=== PATIENT | female | born 1985 | race Caucasian/White ===

== ENCOUNTER 2018-11-08 01:03 | Emergency (ER) | payer BC ==
--- NOTE | 2018-11-08 01:34 | EDM.PDOC ---
ED HPI GENERAL MEDICAL PROBLEM - General Chief Complaint: Chest Pain Stated Complaint: CHEST PAIN Time Seen by Provider: 11/08/18 01:33 - History of Present Illness INITIAL COMMENTS - FREE TEXT/NARRATIVE: 32-year-old female presents emergency room with chest pain. This pain has been going on for couple of days. Patient denies any trauma. However states that she recently got over a upper respiratory tract infection. The pain is fairly constant at the base of her chest bilateral not worsened much with deep inspiration. She also thinks there is a lump on the right side of her upper abdomen at the ribs that might swell up. And she wants to make sure xiphoid process is normal. Patient denies any fevers or chills. The pain did keep her up last night. Middle Chest Pain Score (Numeric/FACES): 2 - Related Data Allergies Allergy/AdvReac Type Severity Reaction Status Date / Time No Known Allergies Allergy Verified 11/08/18 01:11 Home Meds: Home Meds Naproxen 500 mg PO Q12H #20 tablet 11/08/18 [Rx] Past Medical History Gastrointestinal History: Reports: Hemorrhoids - Past Surgical History Female Surgical History: Reports: Section Social & Family History - Tobacco Use Smoking Status *Q: Never Smoker - Caffeine Use Caffeine Use: Reports: None ED ROS GENERAL - Review of Systems Review Of Systems: See Below Constitutional: Reports: No Symptoms HEENT: Reports: No Symptoms Respiratory: Reports: No Symptoms Cardiovascular: Reports: No Symptoms GI/Abdominal: Reports: No Symptoms : Reports: No Symptoms Musculoskeletal: Reports: No Symptoms Neurological: Reports: No Symptoms ED EXAM, GENERAL - Physical Exam Exam: See Below Exam Limited By: No Limitations General Appearance: Alert, No Apparent Distress Head: Atraumatic, Normocephalic Neck: Normal Inspection, Supple, Non-Tender, Full Range of Motion. No: Lymphadenopathy (L), Lymphadenopathy (R) Respiratory/Chest: No Respiratory Distress, Lungs Clear, Other (Pressure over the sternum causes a little bit of discomfort that mimics the pain she's been having and pressure over the lateral ribs also causes some pain that mimics what she's been having) Cardiovascular: Regular Rate, Rhythm, No Edema, No Murmur GI/Abdominal: Normal Bowel Sounds, Soft, Non-Tender, Other (Xiphoid palpates normal as do the cartilaginous portions of the ribs that are easily palpable) Back Exam: Normal Inspection. No: CVA Tenderness (L), CVA Tenderness (R) Extremities: Normal Inspection, Non-Tender EKG INTERPRETATION EKG Date: 11/08/18 Rhythm: Other (Normal sinus with some sinus irregularity) [place]: Normal P-Wave: Present QRS: Normal ST-T: Normal QT: Normal Comparison: NA - No Prior EKG EKG Interpretation Comments: Borderline short [place], borderline early transition sinus irregularity otherwise normal EKG Course - Vital Signs Last Recorded V/S: Last Vital Signs Temp 36.3 C 11/08/18 01:08 Pulse 81 11/08/18 01:08 Resp 20 11/08/18 01:08 BP 102/70 11/08/18 01:08 Pulse Ox 97 11/08/18 01:08 - Orders/Labs/Meds Orders: Active Orders 24 hr Category Date Time Status EKG Documentation Completion [RC] STAT Care 11/08/18 01:45 Ordered Chest 2V [CR] Stat Exams 11/08/18 01:45 Ordered - Re-Assessments/Exams Free Text/Narrative Re-Assessment/Exam: 11/08/18 02:16 Chest x-ray negative for acute cardiopulmonary changes no obvious skeletal abnormality noted. Offered a shot of Toradol but this is declined. Departure - Departure Time of Disposition: 02:16 Disposition: Home, Self-Care 01 Clinical Impression: Chest wall pain Prescriptions: Naproxen 500 mg PO Q12H #20 tablet Referrals: PCP,None [Primary Care Provider] - Forms: ED Department Discharge Additional Instructions: Return to the emergency room with any questions problems or worsening symptoms. Use the Naprosyn twice daily. Whenever taking the Naprosyn or ibuprofen always take with meals. Follow-up in the Hospital clinic early next week if not significantly better. [phone] - My Orders Last 24 Hours: My Active Orders 11/08/18 01:45 EKG Documentation Completion [RC] STAT Chest 2V [CR] Stat - Assessment/Plan Last 24 Hours: My Active Orders 11/08/18 01:45 EKG Documentation Completion [RC] STAT Chest 2V [CR] Stat
--- NOTE | 2018-11-12 05:18 | CR ---
Chest: Two views of the chest were obtained. Comparison: No previous chest x-ray. Heart size and mediastinum are normal. Lungs are clear with no acute parenchymal change. Bony structures are unremarkable. Pressure: 1. Nothing acute is seen on two-view chest x-ray. Diagnostic code #1
== END 2018-11-08 02:23 | disposition home or self-care (01) ==
LOC: JD.ED 01:03
DX: R07.89 Other chest pain (principal)
CPT/HCPCS: 71046; 93005; 93010; 99284; 99285-25

== ENCOUNTER 2020-01-01 18:55 | Inpatient (IN) | payer BC ==
[2020-01-01] MEDS ORDERED: Nalbuphine 10 MG/ML Syringe IVPUSH PRN (19:18)
[2020-01-01] MEDS ORDERED: Sodium Chloride 0.9% 10 ML Syringe FLUSH PRN (19:18)
[2020-01-01] MEDS ORDERED: Ondansetron 4 MG/2 ML SDV IVPUSH PRN (19:18)
--- NOTE | 2020-01-01 19:21 | PCM.LDHP ---
L&D History of Present Illness - General Date of Service: 01/01/20 Admit Problem/Dx: Patient Status Order with Admit Dx/Problem 01/01/20 19:18 Patient Status [ADT] Routine Admission Diagnosis/Problem Admission Diagnosis/Problem Gestational diabetes mellitus Source of Information: Patient History Limitations: Reports: No Limitations - History of Present Illness Introduction:: Patient is a 34 y/o at 40 5/7 wks who presents for IOL/TOLAC for GODMA1. Doing well today. 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 LMP (Approximate): Endocrine/Metabolic History: Reports: Diabetes, Gestational - Past Surgical History Female Surgical History: Reports: Section Social & Family History - Tobacco Use Tobacco Use Status *Q: Never Tobacco User - Caffeine Use Caffeine Use: Reports: None - Alcohol Use Alcohol Use History: No - Recreational Drug Use Recreational Drug Use: No H&P Review of Systems - Review of Systems: Review Of Systems: See Below General: Reports: No Symptoms Pulmonary: Reports: No Symptoms Cardiovascular: Reports: No Symptoms Gastrointestinal: Reports: No Symptoms Genitourinary: Reports: No Symptoms Musculoskeletal: Reports: Hand Pain Psychiatric: Reports: No Symptoms Neurological: Reports: No Symptoms L&D Exam - Exam Exam: See Below - OB Specific Movement: Active Heart Tones: Present Heart Tones per Min: 130 Heart Rate (FHR) Variability: Moderate (6-25 bmp) Presentation: Vertex - Exam General: Alert, Oriented, Cooperative Lungs: Clear to Auscultation, Normal Respiratory Effort Cardiovascular: Regular Rate, Regular Rhythm GI/Abdominal Exam: Soft, Non-Tender Genitourinary: Normal external exam Extremities: Normal Inspection Skin: Warm, Dry, Intact - Problem List (1) 40 weeks gestation of SNOMED Code(s): 35761832 ICD Code: Z3A.40 - 40 WEEKS GESTATION OF Status: Acute Current Visit: Yes (2) Gestational diabetes SNOMED Code(s): 28957073 ICD Code: O24.419 - GESTATIONAL DIABETES MELLITUS IN , UNSP CONTROL Status: Acute Current Visit: Yes Qualifiers: Gestational diabetes mellitus control: diet-controlled Trimester: third trimester Qualified Code(s): O24.410 - Gestational diabetes mellitus in , diet controlled (3) History of delivery SNOMED Code(s): 364084306 ICD Code: Z98.891 - HISTORY OF UTERINE SCAR FROM PREVIOUS SURGERY Status: Acute Current Visit: Yes Problem List Initiated/Reviewed/Updated: Yes Orders Last 24hrs: Active Orders 24 hr Category Date Time Status Patient Status [ADT] Routine ADT 01/01/20 19:18 Ordered Blood Glucose Check, Bedside [RC] Q4HR Care 01/01/20 19:18 Ordered Communication Order [RC] ASDIRECTED Care 01/01/20 19:18 Ordered Communication Order [RC] ASDIRECTED Care 01/01/20 19:18 Ordered Communication Order [RC] ASDIRECTED Care 01/01/20 19:18 Ordered Heart Tones [RC] ASDIRECTED Care 01/01/20 19:19 Ordered Non Stress Test [RC] PER UNIT ROUTINE Care 01/01/20 19:18 Ordered Notify Provider [RC] ASDIRECTED Care 01/01/20 19:18 Ordered Notify Provider [RC] PRN Care 01/01/20 19:18 Ordered Peripheral IV Care [RC] . DIRECTED Care 01/01/20 19:19 Ordered Up ad Mari [RC] ASDIRECTED Care 01/01/20 19:19 Ordered Vaginal Exam [RC] ASDIRECTED Care 01/01/20 19:18 Ordered Vital Signs [RC] ASDIRECTED Care 01/01/20 19:18 Ordered Regular Diet [DIET] Diet 01/01/20 Dinner Ordered CBC W/O DIFF,HEMOGRAM [HEME] Routine Lab 01/01/20 19:18 Ordered CORONAVIRUS COVID-19 [place] [facility] [MOLEC] Stat Lab 01/01/20 19:20 Ordered RAPID PLASMA REAGIN,RPR [CHEM] Routine Lab 01/01/20 19:18 Ordered TYPE AND SCREEN [BBK] Routine Lab 01/01/20 19:18 Ordered Lactated Ringers [Ringers, Lactated] 1,000 ml Med 01/01/20 19:30 Ordered IV ASDIRECTED Nalbuphine [Nubain] Med 01/01/20 19:18 Ordered 10 mg IVPUSH Q2H PRN Ondansetron [Zofran] Med 01/01/20 19:18 Ordered 4 mg IVPUSH Q4H PRN Oxytocin/Lactated Ringers [Pitocin in LR 10 Units/1,000 Med 01/01/20 19:30 Ord ered ML] 10 unit in 1,000 ml IV .CONTINUOUS Oxytocin/Lactated Ringers [Pitocin in LR 10 Units/1,000 Med 01/01/20 19:30 Ordered ML] 10 unit in 1,000 ml IV TITRATE Sodium Chloride 0.9% [Saline Flush] Med 01/01/20 19:18 Ordered 10 ml FLUSH ASDIRECTED PRN Electronic Heart Tones Ext w TOCO [WOMSER] Oth 01/01/20 19:18 Ordered Routine Electronic Heart Tones Internal [WOMSER] Per Unit Oth 01/01/20 19:18 Ordered Routine Peripheral IV Insertion Adult [OM.PC] Routine Oth 01/01/20 19:18 Ordered Resuscitation Status Routine Resus Stat 01/01/20 19:18 Ordered Assessment/Plan Comment:: * Labs ordered * Glucose every 4 hours * Pitocin for IOL. Garcia bulb / AROM as needed * Pain management per patient preference * Anticipate
[2020-01-01] MEDS ORDERED: Oxytocin/Lactated Ringers 10 UNIT/1,000 ML BAG IV SCH (19:30)
[2020-01-01] MEDS: Oxytocin/Lactated Ringers 10 UNIT/1,000 ML BAG IV SCH (20:42)
[2020-01-01] MEDS: Lactated Ringers 1,000 ML IV SCH (20:42)
[2020-01-01] MEDS: Calcium Carbonate 500 MG Tab.Chew PO PRN (20:55)
[2020-01-02] MEDS ORDERED: fentaNYL 100 MCG/2 ML SDV EPIDUR PRN (03:26)
[2020-01-02] MEDS ORDERED: ePHEDrine 50 MG/ML SDV IVPUSH PRN (03:26)
[2020-01-02] MEDS ORDERED: diphenhydrAMINE 50 MG/ML SDV IVPUSH PRN ×2 (03:26→18:06)
[2020-01-02] MEDS: Bupivacaine/fentaNYL/NS 100 ML Bag EPIDUR PRN ×2 (03:44→12:43)
[2020-01-02] MEDS: Lactated Ringers 1,000 ML IV SCH ×3 (04:02→11:18)
--- NOTE | 2020-01-02 04:08 | PCM.PREANE ---
Preanesthetic Assessment - Procedure Proposed Procedure: Labor Epidural - Anesthesia/Transfusion/Family Hx Anesthesia History: Prior Anesthesia Without Reaction Family History of Anesthesia Reaction: No Transfusion History: No Prior Transfusion(s) - Review of Systems General: No Symptoms Pulmonary: No Symptoms Cardiovascular: No Symptoms Gastrointestinal: Other (GERD) Neurological: No Symptoms Other: Reports: Diabetes (Gestational ) - Physical Assessment Vital Signs: Last Vital Signs Temp 37.4 C 01/01/20 19:18 Pulse 112 H 01/01/20 19:18 Resp 18 01/01/20 19:18 BP 117/78 01/01/20 19:18 Pulse Ox 99 01/01/20 19:18 Height: 1.55 m Weight: 70.398 kg ASA Class: 2 Mental Status: Alert & Oriented x3 Airway Class: Mallampati = 2 Dentition: Reports: Normal Dentition Thyro-Mental Finger Breadths: 3 Mouth Opening Finger Breadths: 3 ROM/Head Extension: Full Lungs: Clear to Auscultation, Normal Respiratory Effort Cardiovascular: Regular Rate, Regular Rhythm - Lab Values: Laboratory Last Values WBC 5.22 K/mm3 (3.98-10.04) 01/01/20 19:33 RBC 4.32 M/mm3 (3.98-5.22) 01/01/20 19:33 Hgb 11.0 gm/dl (11.2-15.7) L 01/01/20 19:33 Hct 35.4 % (34.1-44.9) 01/01/20 19:33 MCV 81.9 fl (79.4-94.8) 01/01/20 19:33 MCH 25.5 pg (25.6-32.2) L 01/01/20 19:33 MCHC 31.1 g/dl (32.2-35.5) L 01/01/20 19:33 RDW Std Deviation 56.4 fL (36.4-46.3) H 01/01/20 19:33 Plt Count 112 K/mm3 (182-369) L 01/01/20 19:33 MPV TNP 01/01/20 19:33 POC Glucose 84 mg/dL (70-105) 01/02/20 04:28 RPR Non-reactive (NONREACTIVE) 01/01/20 19:33 SARS-CoV-2 RNA ([facility] [place] [facility]) Negative (NEGATIVE) 01/01/20 19:30 Blood Type O NEGATIVE 01/01/20 19:33 Gel Antibody Screen Negative 01/01/20 19:33 - Allergies Allergies/Adverse Reactions: Allergies Allergy/AdvReac Type Severity Reaction Status Date / Time No Known Allergies Allergy Verified 01/01/20 20:24 - Acknowledgements Anesthesia Type Planned: Epidural Pt an Appropriate Candidate for the Planned Anesthesia: Yes Alternatives and Risks of Anesthesia Discussed w Pt/Guardian: Yes Pt/Guardian Understands and Agrees with Anesthesia Plan: Yes PreAnesthesia Questionnaire Gastrointestinal History: Reports: GERD, Hemorrhoids 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: Psychiatric History: Reports: Anxiety Endocrine/Metabolic History: Reports: Diabetes, Gestational Hematologic History: Reports: Anemia - Past Surgical History Female Surgical History: Reports: Section - SUBSTANCE USE Tobacco Use Status *Q: Never Tobacco User Recreational Drug Use History: No - HOME MEDS Home Medications: Home Meds Docusate Sodium [Colace] 1 cap PO Q12HR PRN 01/01/20 [History] No122/Iron/Folic Acid [ Multi Tablet] 1 each PO DAILY 01/01/20 [History] - CURRENT (IN HOUSE) MEDS Current Meds: Current Medications Calcium Carbonate/Glycine (Tums) 1,000 mg PO Q2HR PRN PRN Reason: Indigestion Last Admin: 01/01/20 20:55 Dose: 1,000 mg Documented by: Diphenhydramine HCl (Benadryl) 25 mg IVPUSH Q6H PRN PRN Reason: pruritis Ephedrine Sulfate (Ephedrine Sulfate) 5 mg IVPUSH ASDIRECTED PRN PRN Reason: Hypotension Fentanyl (Sublimaze) 100 mcg EPIDUR Q3H PRN PRN Reason: Pain Last Admin: 01/02/20 03:44 Dose: 100 mcg Documented by: Fentanyl/Bupivacaine HCl (Fentanyl/Bupivacaine/Ns 2 Mcg-0.125% 100 Ml) 100 ml EPIDUR ASDIRECTED PRN PRN Reason: Pain Last Admin: 01/02/20 03:44 Dose: 100 ml Documented by: Oxytocin/Lactated Ringer's (Pitocin In Lr 10 Units/1,000 Ml) 10 unit in 1,000 mls @ 12 mls/hr IV TITRATE TOMMIE; Protocol Last Titration: 01/02/20 03:53 Dose: 5 munits/min, 30 mls/hr Documented by: Oxytocin/Lactated Ringer's (Pitocin In Lr 10 Units/1,000 Ml) 10 unit in 1,000 mls @ 500 mls/hr IV .CONTINUOUS TOMMIE Lactated Ringer's (Ringers, Lactated) 1,000 mls @ 40 mls/hr IV ASDIRECTED TOMMIE Last Admin: 01/02/20 04:02 Dose: 40 mls/hr Documented by: Nalbuphine HCl (Nubain) 10 mg IVPUSH Q2H PRN PRN Reason: Pain Ondansetron HCl (Zofran) 4 mg IVPUSH Q4H PRN PRN Reason: Nausea/Vomiting Sodium Chloride (Saline Flush) 10 ml FLUSH ASDIRECTED PRN PRN Reason: Keep Vein Open
--- NOTE | 2020-01-02 08:00 | PCM.PNLD ---
Labor Progress Note - VS & Meds Vital Signs: Last Vital Signs Temp 37.4 C 01/01/20 19:18 Pulse 112 H 01/01/20 19:18 Resp 18 01/01/20 19:18 BP 117/78 01/01/20 19:18 Pulse Ox 99 01/01/20 19:18 Active Medications: Current Medications Calcium Carbonate/Glycine (Tums) 1,000 mg PO Q2HR PRN PRN Reason: Indigestion Last Admin: 01/01/20 20:55 Dose: 1,000 mg Documented by: Diphenhydramine HCl (Benadryl) 25 mg IVPUSH Q6H PRN PRN Reason: pruritis Ephedrine Sulfate (Ephedrine Sulfate) 5 mg IVPUSH ASDIRECTED PRN PRN Reason: Hypotension Fentanyl (Sublimaze) 100 mcg EPIDUR Q3H PRN PRN Reason: Pain Last Admin: 01/02/20 03:44 Dose: 100 mcg Documented by: Fentanyl/Bupivacaine HCl (Fentanyl/Bupivacaine/Ns 2 Mcg-0.125% 100 Ml) 100 ml EPIDUR ASDIRECTED PRN PRN Reason: Pain Last Admin: 01/02/20 03:44 Dose: 100 ml Documented by: Oxytocin/Lactated Ringer's (Pitocin In Lr 10 Units/1,000 Ml) 10 unit in 1,000 mls @ 12 mls/hr IV TITRATE TOMMIE; Protocol Last Titration: 01/02/20 05:37 Dose: 9 munits/min, 54 mls/hr Documented by: Oxytocin/Lactated Ringer's (Pitocin In Lr 10 Units/1,000 Ml) 10 unit in 1,000 mls @ 500 mls/hr IV .CONTINUOUS TOMMIE Lactated Ringer's (Ringers, Lactated) 1,000 mls @ 40 mls/hr IV ASDIRECTED TOMMIE Last Admin: 01/02/20 04:02 Dose: 40 mls/hr Documented by: Nalbuphine HCl (Nubain) 10 mg IVPUSH Q2H PRN PRN Reason: Pain Ondansetron HCl (Zofran) 4 mg IVPUSH Q4H PRN PRN Reason: Nausea/Vomiting Sodium Chloride (Saline Flush) 10 ml FLUSH ASDIRECTED PRN PRN Reason: Keep Vein Open - Uterine Contractions Uterine Monitoring Mode: External [place] Contraction Intensity: Moderate Uterine Resting Tone: Soft - Monitoring Monitor Mode: External Ultrasound Heart Rate (FHR) Baseline: 135 Heart Rate (FHR) Variability: Moderate (6-25 bmp) Accelerations: Present, 15x15 Decelerations: Early, Variable Strip Review: Category II - Vaginal Exam Dilation (cm): 5 Effacement (Percent): 80 Station: -1 Cervical Position: Midposition - Labor Progress (Free Text) Labor Progress: Patient doing well. Had SROM around 0300 this AM. Epidural placed shortly afterwards. Pitocin currently at 9. Comfortable. IUPC placed to better continue induction. Reassess as needed
[2020-01-02] MEDS ORDERED: Lidocaine 2% with EPINEPHrine 1:200,000 20 ML SDV ONE (12:00)
[2020-01-02] MEDS ORDERED: Bupivacaine 0.25% 10 ML SDV ONE (12:00)
--- NOTE | 2020-01-02 12:09 | PCM.PNLD ---
Labor Progress Note - VS & Meds Vital Signs: Last Vital Signs Temp 37.4 C 01/01/20 19:18 Pulse 112 H 01/01/20 19:18 Resp 18 01/01/20 19:18 BP 117/78 01/01/20 19:18 Pulse Ox 99 01/01/20 19:18 Active Medications: Current Medications Calcium Carbonate/Glycine (Tums) 1,000 mg PO Q2HR PRN PRN Reason: Indigestion Last Admin: 01/01/20 20:55 Dose: 1,000 mg Documented by: Diphenhydramine HCl (Benadryl) 25 mg IVPUSH Q6H PRN PRN Reason: pruritis Ephedrine Sulfate (Ephedrine Sulfate) 5 mg IVPUSH ASDIRECTED PRN PRN Reason: Hypotension Fentanyl (Sublimaze) 100 mcg EPIDUR Q3H PRN PRN Reason: Pain Last Admin: 01/02/20 03:44 Dose: 100 mcg Documented by: Fentanyl/Bupivacaine HCl (Fentanyl/Bupivacaine/Ns 2 Mcg-0.125% 100 Ml) 100 ml EPIDUR ASDIRECTED PRN PRN Reason: Pain Last Admin: 01/02/20 03:44 Dose: 100 ml Documented by: Oxytocin/Lactated Ringer's (Pitocin In Lr 10 Units/1,000 Ml) 10 unit in 1,000 mls @ 12 mls/hr IV TITRATE TOMMIE; Protocol Last Titration: 01/02/20 10:29 Dose: 12 munits/min, 72 mls/hr Documented by: Oxytocin/Lactated Ringer's (Pitocin In Lr 10 Units/1,000 Ml) 10 unit in 1,000 mls @ 500 mls/hr IV .CONTINUOUS TOMMIE Lactated Ringer's (Ringers, Lactated) 1,000 mls @ 40 mls/hr IV ASDIRECTED TOMMIE Last Admin: 01/02/20 11:18 Dose: 40 mls/hr Documented by: Nalbuphine HCl (Nubain) 10 mg IVPUSH Q2H PRN PRN Reason: Pain Ondansetron HCl (Zofran) 4 mg IVPUSH Q4H PRN PRN Reason: Nausea/Vomiting Sodium Chloride (Saline Flush) 10 ml FLUSH ASDIRECTED PRN PRN Reason: Keep Vein Open - Uterine Contractions Uterine Monitoring Mode: IUPC Contraction Intensity: Moderate Uterine Resting Tone: Soft - Monitoring Monitor Mode: External Ultrasound Heart Rate (FHR) Baseline: 135 Heart Rate (FHR) Variability: Moderate (6-25 bmp) Accelerations: Present, 15x15 Decelerations: Early Strip Review: Category I - Vaginal Exam Dilation (cm): 7-8 Effacement (Percent): 80 Station: 0 Cervical Position: Midposition - Labor Progress (Free Text) Labor Progress: Doing well. Pitocin at 12. Cervix with only slight change since last check. Will continue to increase pitocin per protocol. Reassess in a few hours
[2020-01-02] MEDS: Oxytocin/Lactated Ringers 10 UNIT/1,000 ML BAG IV SCH (13:32)
[2020-01-02] MEDS: Calcium Carbonate 500 MG Tab.Chew PO PRN (14:32)
--- NOTE | 2020-01-02 15:15 | PCM.PNLD ---
Labor Progress Note - VS & Meds Vital Signs: Last Vital Signs Temp 37.4 C 01/01/20 19:18 Pulse 112 H 01/01/20 19:18 Resp 18 01/01/20 19:18 BP 117/78 01/01/20 19:18 Pulse Ox 99 01/01/20 19:18 Active Medications: Current Medications Calcium Carbonate/Glycine (Tums) 1,000 mg PO Q2HR PRN PRN Reason: Indigestion Last Admin: 01/02/20 14:32 Dose: 1,000 mg Documented by: Diphenhydramine HCl (Benadryl) 25 mg IVPUSH Q6H PRN PRN Reason: pruritis Ephedrine Sulfate (Ephedrine Sulfate) 5 mg IVPUSH ASDIRECTED PRN PRN Reason: Hypotension Fentanyl (Sublimaze) 100 mcg EPIDUR Q3H PRN PRN Reason: Pain Last Admin: 01/02/20 03:44 Dose: 100 mcg Documented by: Fentanyl/Bupivacaine HCl (Fentanyl/Bupivacaine/Ns 2 Mcg-0.125% 100 Ml) 100 ml EPIDUR ASDIRECTED PRN PRN Reason: Pain Last Admin: 01/02/20 12:43 Dose: 100 ml Documented by: Oxytocin/Lactated Ringer's (Pitocin In Lr 10 Units/1,000 Ml) 10 unit in 1,000 mls @ 12 mls/hr IV TITRATE TOMMIE; Protocol Last Titration: 01/02/20 14:05 Dose: 15 munits/min, 90 mls/hr Documented by: Oxytocin/Lactated Ringer's (Pitocin In Lr 10 Units/1,000 Ml) 10 unit in 1,000 mls @ 500 mls/hr IV .CONTINUOUS TOMMIE Lactated Ringer's (Ringers, Lactated) 1,000 mls @ 40 mls/hr IV ASDIRECTED TOMMIE Last Admin: 01/02/20 11:18 Dose: 40 mls/hr Documented by: Nalbuphine HCl (Nubain) 10 mg IVPUSH Q2H PRN PRN Reason: Pain Ondansetron HCl (Zofran) 4 mg IVPUSH Q4H PRN PRN Reason: Nausea/Vomiting Sodium Chloride (Saline Flush) 10 ml FLUSH ASDIRECTED PRN PRN Reason: Keep Vein Open - Uterine Contractions Uterine Monitoring Mode: IUPC Contraction Intensity: Moderate Uterine Resting Tone: Soft - Monitoring Monitor Mode: External Ultrasound Heart Rate (FHR) Baseline: 140 Heart Rate (FHR) Variability: Moderate (6-25 bmp) Accelerations: Present, 15x15 Decelerations: Early, Late (isolated) Strip Review: Category II - Vaginal Exam Dilation (cm): 8-9 Effacement (Percent): 80 Station: 0 Cervical Position: Midposition - Labor Progress (Free Text) Labor Progress: Pitocin now at 15. Contractions adequate. Has made some change since I last checked patient. Reviewed with patient this is a longer course to go from 7 (which she was first thought to be around 1000) to now 8-9. status still reassuring. Reviewed options and she does want to monitor for a little longer and reassess. Aware of possibility of .
[2020-01-02] MEDS ORDERED: Metoclopramide 10 MG/2 ML SDV IVPUSH ONE (15:45)
[2020-01-02] MEDS ORDERED: ceFAZolin 2 GM in Premix Bag 1 BAG IV ONE (15:45)
[2020-01-02] MEDS ORDERED: Citric Acid/Sodium Citrate Solution 30 ML Cup PO ONE (15:45)
--- NOTE | 2020-01-02 15:49 | PCM.SN.2 ---
- Free Text/Narrative Note: Exam now seems more like 8 cm again and more swollen. Contractions adequate. Reviewed options. patient would like to proceed with repeat . Crew made aware. Betty Wright MD
--- NOTE | 2020-01-02 15:49 | PCM.OPNOTE ---
- General Post-Op/Procedure Note Date of Surgery/Procedure: 01/02/20 Operative Procedure(s): Repeat low transverse Findings: Moderate amount of scar tissue between the rectus and fascia. With entering the peritoneum there were several adhesive bands from the uterus to the anterior abdominal wall which were taken down with cautery. Minimal scarring between bladder and KARMA. Baby girl in a vertex presentation, OP and wedged into pelvis. APGARS of 5 & 9. Weight of 8 lbs. Grossly normal appearance of tubes and ovaries. Pre Op Diagnosis: 40 6/7 wks gestation. Hx of for NRFS. Failed TOLAC - arrest of 1st stage of labor Post-Op Diagnosis: Same Anesthesia Technique: Epidural Primary Surgeon: Betty Wright Secondary Surgeon: Breann Cramer Anesthesia Provider: Jorden Ceron Reason Machine Stuffer Automatic Was Necessary: Speed/safety of procedure Pathology: Cord blood collected. Placenta discarded Fluid Replacement, Intraop: 1,200 Output, Urine Amount: 75 EBL in mLs: 500 Complications: None Condition: Good Free Text/Narrative:: The risks, benefits, indications, potential complications, and alternatives were explained to the patient and informed consent obtained. After induction of anesthesia, the patient was placed in a supine position and then draped and prepped in the usual sterile manner. A Pfannenstiel incision was made and carried down through the subcutaneous tissue to the fascia. Fascial incision was made and extended transversely. The fascia was from the underlying rectus tissue superiorly and inferiorly. The peritoneum was identified and entered. Adhesive bands between uterus and anterior abdominal wall taken down with cautery. Peritoneal incision was extended longitudinally. The utero-vesical peritoneal reflection was incised transversely and the bladder flap was bluntly freed from the lower uterine segment. A low transverse uterine incision was made sharply with a scalpel and extended bluntly in a cephalocaudad direction. A baby girl was delivered from a vertex presentation with APGARS as above. After the umbilical cord was clamped and cut cord blood was obtained for evaluation. The placenta was removed intact and appeared normal. The uterus was exteriorized and cleared of clots. The uterine outline, tubes and ovaries appeared normal. The uterine incision was closed with running locked sutures of 0 Vicryl. Hemostasis was obtained with several interrupted sutures of 0 Vicryl placed in figure of eight fashion. The uterus was then placed back into the abdomen. The infracolic gutters were cleared of blood clots. The fascia was then reapproximated with running sutures of 0 Vicryl. The subcutaneous tissue was irrigated with sterile warm normal saline, hemostasis obtained with cautery. This layer was closed with a running 0 Vicryl. The skin was reapproximated with running Subcuticular 4-0 monocryl sutures. Instrument, sponge, and needle counts were correct prior the abdominal closure and at the conclusion of the case.
[2020-01-02] MEDS ORDERED: Azithromycin 500 MG in Sodium Chloride 0.9% 250 ML IV ONE (16:00)
[2020-01-02] MEDS ORDERED: Metoclopramide 10 MG/2 ML SDV ONE (16:02)
[2020-01-02] MEDS ORDERED: Citric Acid/Sodium Citrate Solution 30 ML Cup ONE (16:02)
[2020-01-02] MEDS ORDERED: Oxytocin 10 Units/1 ML SDV ONE (16:16)
--- NOTE | 2020-01-02 17:10 | PCM.POSTAN ---
POST ANESTHESIA ASSESSMENT - MENTAL STATUS Mental Status: Alert, Oriented - VITAL SIGNS Vital Signs: Last Vital Signs Temp 37.4 C 01/01/20 19:18 Pulse 112 H 01/01/20 19:18 Resp 18 01/01/20 19:18 BP 117/78 01/01/20 19:18 Pulse Ox 99 01/01/20 19:18 - RESPIRATORY Respiratory Status: Respiratory Rate WNL, Airway Patent, O2 Saturation Stable - CARDIOVASCULAR CV Status: Pulse Rate WNL, Blood Pressure Stable - GASTROINTESTINAL GI Status: No Symptoms - PAIN Pain Score: 0 (Did not dose epidural catheter with Duramorph as I was not sure whether that was institutional practice.) - POST OP HYDRATION Hydration Status: Adequate & Stable - OBSERVATIONS Free Text/Narrative:: Pulled epidural catheter after case prior to transfer to PACU. Small, old sanguinous drainage from catheter site. No concerns pulling catheter. Transfer to recovery with handoff to RN. VSS, SV, MUE, FAC, CTAB. No concerns at this time.
[2020-01-02] MEDS ORDERED: Dextrose 5%-Lactated Ringers 1,000 ML IV SCH (18:06)
[2020-01-02] MEDS ORDERED: Ondansetron 4 MG/2 ML SDV IV PRN (18:06)
[2020-01-02] MEDS ORDERED: Naloxone 0.4 MG/ML SDV IVPUSH PRN (18:06)
[2020-01-02] MEDS: Docusate Sodium 100 MG Cap PO PRN (18:54)
[2020-01-02] MEDS: Acetaminophen/oxyCODONE 325-5 MG Tab PO PRN (18:54)
[2020-01-02] MEDS: Ketorolac 30 MG/ML SDV IVPUSH SCH (22:37)
[2020-01-03] MEDS: Acetaminophen/oxyCODONE 325-5 MG Tab PO PRN ×6 (00:10→20:46)
[2020-01-03] MEDS ORDERED: Sodium Chloride 0.9% 1,000 ML IV ONE (02:50)
[2020-01-03] MEDS: Methylergonovine 0.2 MG/1 ML Amp IM SCH ×2 (03:02→06:45)
[2020-01-03] MEDS ORDERED: Morphine 4 MG/ML Syringe IVPUSH ONE (03:10)
[2020-01-03] MEDS ORDERED: Morphine 2 MG/ML SYRINGE IVPUSH ONE (03:26)
[2020-01-03] MEDS ORDERED: Morphine 2 MG/ML SYRINGE ONE (03:27)
[2020-01-03] MEDS ORDERED: Misoprostol 200 MCG Tab PO ONE (03:40)
[2020-01-03] MEDS ORDERED: Misoprostol 200 MCG Tab ONE (03:42)
[2020-01-03] MEDS ORDERED: ceFAZolin 1 GM in Premix Bag 1 BAG IV ONE (03:42)
[2020-01-03] MEDS ORDERED: Sodium Chloride 0.9% 1,000 ML IV SCH (04:30)
[2020-01-03] MEDS: Ketorolac 30 MG/ML SDV IVPUSH SCH ×2 (04:39→10:26)
--- NOTE | 2020-01-03 07:13 | PCM.PNPP ---
- General Info Date of Service: 01/03/20 Functional Status: Reports: Pain Controlled, Tolerating Diet, Ambulating (minimally ) - Review of Systems General: Reports: No Symptoms Pulmonary: Reports: No Symptoms. Denies: Shortness of Breath Cardiovascular: Reports: No Symptoms. Denies: Chest Pain, Lightheadedness Gastrointestinal: Reports: Abdominal Pain (managed with medications ) Genitourinary: Reports: No Symptoms Musculoskeletal: Reports: No Symptoms Systems Review Comment:: Overnight in to see patient around 0300 due to increased bleeding. Patient overnight given methergine and 2nd dose just administered now, 4 hours later. When here at 0300 also given 600 mcg of buccal cytotec. Exam did show some blood/clot in KARMA which was removed with speculum exam. Patient currently reports feeling well overall. Tired from interventions overnight. No dizziness, lightheadedness, chest pain, SOB. - Patient Data Vital Signs - Most Recent: Last Vital Signs Temp 36.9 C 01/03/20 04:38 Pulse 78 01/03/20 04:38 Resp 15 01/03/20 07:00 BP 128/73 01/03/20 04:38 Pulse Ox 97 01/03/20 07:00 Weight - Most Recent: 70.398 kg I&O - Last 24 Hours: Intake & Output 01/02/20 01/03/20 01/03/20 22:59 06:59 14:59 Intake Total 4200 Output Total 1075 1236 Balance 3125 -1236 Lab Results - Last 24 Hours: Laboratory Results - last 24 hr 01/02/20 01/02/20 01/02/20 Range/Units 08:41 11:27 15:36 WBC (3.98-10.04) K/mm3 RBC (3.98-5.22) M/mm3 Hgb (11.2-15.7) gm/dl Hct (34.1-44.9) % MCV (79.4-94.8) fl MCH (25.6-32.2) pg MCHC (32.2-35.5) g/dl RDW Std Deviation (36.4-46.3) fL Plt Count (182-369) K/mm3 MPV POC Glucose 78 78 98 (70-105) mg/dL 01/02/20 01/03/20 Range/Units 18:28 06:55 WBC 14.11 H (3.98-10.04) K/mm3 RBC 3.99 (3.98-5.22) M/mm3 Hgb 10.2 L (11.2-15.7) gm/dl Hct 33.0 L (34.1-44.9) % MCV 82.7 (79.4-94.8) fl MCH 25.6 (25.6-32.2) pg MCHC 30.9 L (32.2-35.5) g/dl RDW Std Deviation 57.6 H (36.4-46.3) fL Plt Count 101 L (182-369) K/mm3 MPV TNP POC Glucose 85 (70-105) mg/dL Med Orders - Current: Current Medications Diphenhydramine HCl (Benadryl) 25 mg IVPUSH Q6H PRN PRN Reason: Itching or Nausea Docusate Sodium (Colace) 100 mg PO Q12H PRN PRN Reason: Constipation Last Admin: 01/02/20 18:54 Dose: 100 mg Documented by: Sodium Chloride (Normal Saline) 1,000 mls @ 125 mls/hr IV ASDIRECTED [facility] Last Admin: 01/03/20 04:45 Dose: 125 mls/hr Documented by: Ibuprofen (Motrin) 600 mg PO Q6H PRN PRN Reason: mild pain or fever Ketorolac Tromethamine (Toradol) 30 mg IVPUSH Q6H [facility] Stop: 01/03/20 10:31 Last Admin: 01/03/20 04:39 Dose: 30 mg Documented by: Naloxone HCl (Narcan) 0.1 mg IVPUSH SEECOMMENT PRN PRN Reason: Respiratory Depression Ondansetron HCl (Zofran) 4 mg IV Q8H PRN PRN Reason: Nausea/Vomiting Oxycodone/Acetaminophen (Percocet 325-5 Mg) 2 tab PO Q4H PRN PRN Reason: Pain (severe 7-10) Last Admin: 01/03/20 00:10 Dose: 2 tab Documented by: Oxycodone/Acetaminophen (Percocet 325-5 Mg) 1 tab PO Q4H PRN PRN Reason: Pain (moderate 4-6) Last Admin: 01/03/20 06:46 Dose: 1 tab Documented by: Discontinued Medications Calcium Carbonate/Glycine (Tums) 1,000 mg PO Q2HR PRN PRN Reason: Indigestion Last Admin: 01/02/20 14:32 Dose: 1,000 mg Documented by: Citric Acid/Sodium Citrate (Bicitra Solution) 30 ml PO ONETIME ONE Stop: 01/02/20 15:46 Last Admin: 01/02/20 16:00 Dose: 30 ml Documented by: Citric Acid/Sodium Citrate (Bicitra Solution) Confirm Administered Dose 30 ml .ROUTE .STK-MED ONE Stop: 01/02/20 16:03 Last Admin: 01/02/20 21:49 Dose: Not Given Documented by: Diphenhydramine HCl (Benadryl) 25 mg IVPUSH Q6H PRN PRN Reason: pruritis Ephedrine Sulfate (Ephedrine Sulfate) 5 mg IVPUSH ASDIRECTED PRN PRN Reason: Hypotension Fentanyl (Sublimaze) 100 mcg EPIDUR Q3H PRN PRN Reason: Pain Last Admin: 01/02/20 03:44 Dose: 100 mcg Documented by: Fentanyl/Bupivacaine HCl (Fentanyl/Bupivacaine/Ns 2 Mcg-0.125% 100 Ml) 100 ml EPIDUR ASDIRECTED PRN PRN Reason: Pain Last Admin: 01/02/20 12:43 Dose: 100 ml Documented by: Oxytocin/Lactated Ringer's (Pitocin In Lr 10 Units/1,000 Ml) 10 unit in 1,000 mls @ 12 mls/hr IV TITRATE TOMMIE; Protocol Last Titration: 01/02/20 14:05 Dose: 15 munits/min, 90 mls/hr Documented by: Oxytocin/Lactated Ringer's (Pitocin In Lr 10 Units/1,000 Ml) 10 unit in 1,000 mls @ 500 mls/hr IV .CONTINUOUS TOMMIE Lactated Ringer's (Ringers, Lactated) 1,000 mls @ 40 mls/hr IV ASDIRECTED TOMMIE Last Admin: 01/02/20 11:18 Dose: 40 mls/hr Documented by: Cefazolin Sodium/Dextrose 2 gm (/ Premix) 50 mls @ 100 mls/hr IV ONETIME ONE Stop: 01/02/20 16:14 Last Admin: 01/02/20 21:48 Dose: Not Given Documented by: Azithromycin 500 mg/ Sodium (Chloride) 250 mls @ 250 mls/hr IV ONETIME ONE Stop: 01/02/20 16:59 Dextrose/Lactated Ringer's (Dextrose 5%-Lactated Ringers) 1,000 mls @ 125 mls/hr IV ASDIRECTED [facility] Stop: 01/03/20 02:05 Last Admin: 01/02/20 20:36 Dose: 125 mls/hr Documented by: Sodium Chloride (Normal Saline) 1,000 mls @ 1,000 mls/hr IV ONETIME ONE Stop: 01/03/20 03:49 Last Admin: 01/03/20 02:58 Dose: 1,000 mls/hr Documented by: Cefazolin Sodium/Dextrose 1 gm (/ Premix) 50 mls @ 100 mls/hr IV ONETIME ONE Stop: 01/03/20 04:11 Last Admin: 01/03/20 03:50 Dose: 100 mls/hr Documented by: Methylergonovine Maleate (Methergine) 0.2 mg IM Q4H [facility] Stop: 01/03/20 06:52 Last Admin: 01/03/20 06:45 Dose: 0.2 mg Documented by: Metoclopramide HCl (Reglan) 10 mg IVPUSH ONETIME ONE Stop: 01/02/20 15:46 Last Admin: 01/02/20 16:00 Dose: 10 mg Documented by: Metoclopramide HCl (Reglan) Confirm Administered Dose 10 mg .ROUTE .STK-MED ONE Stop: 01/02/20 16:03 Last Admin: 01/02/20 21:49 Dose: Not Given Documented by: Misoprostol (Cytotec) 600 mcg PO NOW ONE Stop: 01/03/20 03:41 Last Admin: 01/03/20 03:49 Dose: 600 mcg Documented by: Misoprostol (Cytotec) Confirm Administered Dose 600 mcg .ROUTE .STK-MED ONE Stop: 01/03/20 03:43 Last Admin: 01/03/20 03:56 Dose: Not Given Documented by: Morphine Sulfate (Morphine) 4 mg IVPUSH ONETIME ONE Stop: 01/03/20 03:11 Last Admin: 01/03/20 03:15 Dose: 4 mg Documented by: Morphine Sulfate (Morphine) 2 mg IVPUSH ONETIME ONE Stop: 01/03/20 03:27 Last Admin: 01/03/20 03:30 Dose: 2 mg Documented by: Morphine Sulfate (Morphine) Confirm Administered Dose 2 mg .ROUTE .STK-MED ONE Stop: 01/03/20 03:28 Last Admin: 01/03/20 03:48 Dose: Not Given Documented by: Nalbuphine HCl (Nubain) 10 mg IVPUSH Q2H PRN PRN Reason: Pain Ondansetron HCl (Zofran) 4 mg IVPUSH Q4H PRN PRN Reason: Nausea/Vomiting Oxytocin (Pitocin) Confirm Administered Dose 20 unit .ROUTE .STK-MED ONE Stop: 01/02/20 16:17 Sodium Chloride (Saline Flush) 10 ml FLUSH ASDIRECTED PRN PRN Reason: Keep Vein Open - Infant Interaction Disposition, : [place] in Room with Family Infant Interaction: Holding Infant Feeding: Attempted ; Nursed Fair/Poor Support Person: - Recovery Exam Fundal Tone: Firm Fundal Level: At Umbilicus Fundal Placement: Midline Lochia Amount: Small Lochia Color: Rubra/Red Perineum Description: Edematous Episiotomy/Laceration: None Bladder Status: Indwelling Catheter in Place Urinary Elimination: Indwelling Catheter - Exam General: Alert, Oriented, Cooperative Lungs: Clear to Auscultation, Normal Respiratory Effort Cardiovascular: Regular Rate, Regular Rhythm GI/Abdominal Exam: Soft, Tender (appropriate ). No: Distended, Guarding, Rigid, Rebound Skin: Warm, Dry, Intact Wound/Incisions: Healing Well, No Drainage - Problem List & Annotations (1) 40 weeks gestation of SNOMED Code(s): 55552252 Code(s): Z3A.40 - 40 WEEKS GESTATION OF Status: Acute Current Visit: Yes (2) Gestational diabetes SNOMED Code(s): 64799742 Code(s): O24.419 - GESTATIONAL DIABETES MELLITUS IN , UNSP CONTROL Status: Acute Current Visit: Yes Qualifiers: Gestational diabetes mellitus control: diet-controlled Trimester: third trimester Qualified Code(s): O24.410 - Gestational diabetes mellitus in , diet controlled (3) History of delivery SNOMED Code(s): 522591850 Code(s): Z98.891 - HISTORY OF UTERINE SCAR FROM PREVIOUS SURGERY Status: Acute Current Visit: Yes (4) Delayed hemorrhage SNOMED Code(s): 37108026 Code(s): O72.2 - DELAYED AND SECONDARY HEMORRHAGE Status: Acute Current Visit: Yes - Problem List Review Problem List Initiated/Reviewed/Updated: Yes - My Orders Last 24 Hours: My Active Orders 01/02/20 Dinner Regular Diet [DIET] 01/02/20 18:06 Acetaminophen/oxyCODONE [Percocet 325-5 MG] 1 tab PO Q4H PRN Acetaminophen/oxyCODONE [Percocet 325-5 MG] 2 tab PO Q4H PRN Docusate Sodium [Colace] 100 mg PO Q12H PRN Ibuprofen [Motrin] 600 mg PO Q6H PRN Naloxone [Narcan] 0.1 mg IVPUSH SEECOMMENT PRN Ondansetron [Zofran] 4 mg IV Q8H PRN diphenhydrAMINE [Benadryl] 25 mg IVPUSH Q6H PRN 01/02/20 18:06 Activity as Tolerated [RC] .Routine Antiembolic Devices [RC] PER UNIT ROUTINE Communication Order [RC] PER UNIT ROUTINE Intake and Output [RC] Q4H Notify Provider Intake and Out [RC] ASDIRECTED RT Incentive Spirometry [RC] Q2HWA Vital Signs [RC] Q1HR Assess Lochia [WOMSER] Per Unit Routine Assess Uterine Involution [WOMSER] Per Unit Routine Breast Pump [WOMSER] Per Unit Routine Peripheral IV Discontinue [OM.PC] Routine Sequential Compression Device [OM.PC] Per Unit Routine 01/02/20 22:30 Ketorolac [Toradol] 30 mg IVPUSH Q6H 01/03/20 04:30 Sodium Chloride 0.9% [Normal Saline] 1,000 ml IV ASDIRECTED 01/03/20 15:00 CBC WITH AUTO DIFF [HEME] Timed 01/03/20 17:14 Urinary Catheter Removal [RC] Per Unit Routine - Assessment Assessment:: PPD#1 - Plan Plan:: * Glucose value this AM appropriate. No further monitoring. Will need 2hr GTT at 6 weeks * S/p Cytotec and 2 doses of methergine overnight. Will check CBC at 1500 this PM, about 24 hours after surgery. Continue to watch bleeding and VS closely * Routine cares, remove nelson * Breast feeding * Discharge pending clinical course
--- NOTE | 2020-01-03 07:26 | PCM48HPAN ---
Post Anesthesia Note - EVALUATION WITHIN 48HRS OF ANESTHETIC Vital Signs in Normal Range: Yes Patient Participated in Evaluation: Yes Respiratory Function Stable: Yes Airway Patent: Yes Cardiovascular Function Stable: Yes Hydration Status Stable: Yes Pain Control Satisfactory: Yes Nausea and Vomiting Control Satisfactory: Yes Mental Status Recovered: Yes Vital Signs: Last Vital Signs Temp 36.9 C 01/03/20 04:38 Pulse 78 01/03/20 04:38 Resp 15 01/03/20 07:00 BP 128/73 01/03/20 04:38 Pulse Ox 97 01/03/20 07:00
[2020-01-03] MEDS: Simethicone 80 MG Tab.Chew PO PRN ×3 (10:28→20:20)
[2020-01-03] MEDS: Docusate Sodium 100 MG Cap PO PRN ×2 (10:28→20:20)
[2020-01-03] MEDS: Ibuprofen 600 MG Tab PO PRN (16:19)
[2020-01-04] MEDS: Acetaminophen/oxyCODONE 325-5 MG Tab PO PRN ×2 (01:10→07:29)
[2020-01-04] MEDS: Simethicone 80 MG Tab.Chew PO PRN ×2 (01:11→07:32)
[2020-01-04] MEDS: Ibuprofen 600 MG Tab PO PRN ×2 (03:29→10:55)
[2020-01-04] MEDS: Docusate Sodium 100 MG Cap PO PRN (07:32)
--- NOTE | 2020-01-04 10:16 | PCM.SN.2 ---
- Free Text/Narrative Note: 1700 Patient's Hb returned at a value of 7. On admission was 11. No on-going bleeding. Reviewed risks/benefits of transfusion. Patient would like to see how she tolerates getting up more throughout the night. Does not feel poorly now and so would like to hold on transfusion if possible. Will reassess in AM Betty Wright MD
--- NOTE | 2020-01-04 10:22 | PCM.DCSUM1 ---
Discharge Summary - Discharge Data Discharge Date: 01/04/20 Discharge Disposition: Home, Self-Care 01 Condition: Good - Referral to Home Health Primary Care Physician: Betty Wright MD - Discharge Diagnosis/Problem(s) (1) 40 weeks gestation of SNOMED Code(s): 90162966 ICD Code: Z3A.40 - 40 WEEKS GESTATION OF Status: Acute Current Visit: Yes (2) Gestational diabetes SNOMED Code(s): 39536942 ICD Code: O24.419 - GESTATIONAL DIABETES MELLITUS IN , UNSP CONTROL Status: Acute Current Visit: Yes Qualifiers: Gestational diabetes mellitus control: diet-controlled Trimester: third trimester Qualified Code(s): O24.410 - Gestational diabetes mellitus in pr egnancy, diet controlled (3) History of delivery SNOMED Code(s): 891505691 ICD Code: Z98.891 - HISTORY OF UTERINE SCAR FROM PREVIOUS SURGERY Status: Acute Current Visit: Yes (4) Failure to progress in first stage of labor SNOMED Code(s): 186000741 ICD Code: LUS5496 - Status: Acute Current Visit: Yes (5) Failed trial of labor following previous , delivered SNOMED Code(s): 43469199, 777582068 ICD Code: O66.41 - FAILED ATTEMPT VAGINAL AFTER PREVIOUS DEL Status: Acute Current Visit: Yes (6) S/P repeat low transverse SNOMED Code(s): 026015478, 40478422, 761637390, 456255559, 985592767 ICD Code: Z98.891 - HISTORY OF UTERINE SCAR FROM PREVIOUS SURGERY Status: Acute Current Visit: Yes (7) Delayed hemorrhage SNOMED Code(s): 96399468 ICD Code: O72.2 - DELAYED AND SECONDARY HEMORRHAGE Status: Acute Current Visit: Yes (8) Postoperative anemia SNOMED Code(s): 510472510, 210337282 ICD Code: D64.9 - ANEMIA, UNSPECIFIED Status: Acute Current Visit: Yes - Patient Summary/Data Operative Procedure(s) Performed: Repeat low transverse Complications: None Consults: None Recommended Follow-up Testing/Procedures: Follow up in 3 weeks for post op check Hospital Course: 34 y/o at 40 5/7 wks who presented for TOLAC/IOL for GODMA1 in . Induction done with pitocin. Had SROM during IOL. Was able to achieve 7 cm dilation, but then after 6 hours was only about 8 cm and without continued progress despite adequate contractions with IUPC. Was taken for RLTCS. See operative note. Surgery itself uncomplicated. Overnight, about 12 hours after surgery, did have a delayed hemorrhage. This was managed with cytotec, methergine. Did well, but was found to have a Hb of 7 at 24 hours after surgery. Did well and declined transfusion. Requested discharge home on PPD#2 which was done. - Patient Instructions Diet: Regular Diet as Tolerated Activity: No Lifting Over 10 Pounds Activity, Other: Pelvic rest for 6 weeks Driving: Do Not Drive (While taking percocet pain medication ) Showering/Bathing: May Shower, No Tub Bathing/Swimming Wound/Incision Care: Keep Operative Site/Wound Site Clean and Dry Notify Provider of: Fever, Increased Pain, Swelling and Redness, Drainage, Nausea and/or Vomiting - Discharge Plan *PRESCRIPTION DRUG MONITORING PROGRAM REVIEWED*: No *COPY OF PRESCRIPTION DRUG MONITORING REPORT IN PATIENT JASPAL: No Prescriptions/Med Rec: Ferrous Sulfate 325 mg PO Q12HR #90 tablet Acetaminophen/oxyCODONE [Percocet 325-5 MG] 1 - 2 tab PO Q4H PRN #25 tablet PRN Reason: Pain (Moderate 4-6) Simethicone 80 mg PO Q4H PRN #90 tab.chew PRN Reason: Gas Home Medications: Home Meds Docusate Sodium [Colace] 1 cap PO Q12HR PRN 01/01/20 [History] No122/Iron/Folic Acid [ Multi Tablet] 1 each PO DAILY 01/01/20 [History] Acetaminophen/oxyCODONE [Percocet 325-5 MG] 1 - 2 tab PO Q4H PRN #25 tablet 01/04/20 [Rx] Ferrous Sulfate 325 mg PO Q12HR #90 tablet 01/04/20 [Rx] Ibuprofen [Motrin] 600 mg PO Q6H PRN tablet 01/04/20 [Rx] Simethicone 80 mg PO Q4H PRN #90 tab.chew 01/04/20 [Rx] Patient Handouts: Delivery, Care After, Care After Delivery Referrals: Betty Wright MD [Primary Care Provider] - (3 weeks for post op check ) - Discharge Summary/Plan Comment DC Time >30 min.: No - Patient Data Vitals - Most Recent: Last Vital Signs Temp 36.6 C 01/04/20 03:27 Pulse 84 01/04/20 03:27 Resp 15 01/04/20 03:27 BP 113/72 01/04/20 03:27 Pulse Ox 98 01/04/20 03:27 Weight - Most Recent: 70.398 kg I&O - Last 24 hours: Intake & Output 01/03/20 01/04/20 01/04/20 22:59 06:59 14:59 Intake Total 120 Output Total 300 Balance -180 Lab Results - Last 24 hrs: Laboratory Results - last 24 hr 01/03/20 Range/Units 14:54 WBC 11.37 H (3.98-10.04) K/mm3 RBC 2.76 L (3.98-5.22) M/mm3 Hgb 7.0 L* D (11.2-15.7) gm/dl Hct 23.2 L (34.1-44.9) % MCV 84.1 (79.4-94.8) fl MCH 25.4 L (25.6-32.2) pg MCHC 30.2 L (32.2-35.5) g/dl RDW Std Deviation 57.3 H (36.4-46.3) fL Plt Count 92 L (182-369) K/mm3 MPV 13.2 H (9.4-12.3) fl Neut % (Auto) 84.0 H (34.0-71.1) % Lymph % (Auto) 9.2 L (19.3-51.7) % [place] % (Auto) 6.2 (4.7-12.5) % Eos % (Auto) 0.3 L (0.7-5.8) Baso % (Auto) 0.1 (0.1-1.2) % Neut # (Auto) 9.56 H (1.56-6.13) K/mm3 Lymph # (Auto) 1.05 L (1.18-3.74) K/mm3 [place] # (Auto) 0.70 H (0.24-0.36) K/mm3 Eos # (Auto) 0.03 L (0.04-0.36) K/mm3 Baso # (Auto) 0.01 (0.01-0.08) K/mm3 Manual Slide Review Abnormal smear Med Orders - Current: Current Medications Diphenhydramine HCl (Benadryl) 25 mg IVPUSH Q6H PRN PRN Reason: Itching or Nausea Docusate Sodium (Colace) 100 mg PO Q12H PRN PRN Reason: Constipation Last Admin: 01/04/20 07:32 Dose: 100 mg Documented by: Sodium Chloride (Normal Saline) 1,000 mls @ 125 mls/hr IV ASDIRECTED TOMMIE Last Admin: 01/03/20 04:45 Dose: 125 mls/hr Documented by: Ibuprofen (Motrin) 600 mg PO Q6H PRN PRN Reason: mild pain or fever Last Admin: 01/04/20 03:29 Dose: 600 mg Documented by: Naloxone HCl (Narcan) 0.1 mg IVPUSH SEECOMMENT PRN PRN Reason: Respiratory Depression Ondansetron HCl (Zofran) 4 mg IV Q8H PRN PRN Reason: Nausea/Vomiting Oxycodone/Acetaminophen (Percocet 325-5 Mg) 2 tab PO Q4H PRN PRN Reason: Pain (severe 7-10) Last Admin: 01/04/20 07:29 Dose: 2 tab Documented by: Oxycodone/Acetaminophen (Percocet 325-5 Mg) 1 tab PO Q4H PRN PRN Reason: Pain (moderate 4-6) Last Admin: 01/03/20 16:20 Dose: 1 tab Documented by: Simethicone (Simethicone) 80 mg PO Q4H PRN PRN Reason: Gas Last Admin: 01/04/20 07:32 Dose: 80 mg Documented by: Discontinued Medications Calcium Carbonate/Glycine (Tums) 1,000 mg PO Q2HR PRN PRN Reason: Indigestion Last Admin: 01/02/20 14:32 Dose: 1,000 mg Documented by: Citric Acid/Sodium Citrate (Bicitra Solution) 30 ml PO ONETIME ONE Stop: 01/02/20 15:46 Last Admin: 01/02/20 16:00 Dose: 30 ml Documented by: Citric Acid/Sodium Citrate (Bicitra Solution) Confirm Administered Dose 30 ml .ROUTE .STK-MED ONE Stop: 01/02/20 16:03 Last Admin: 01/02/20 21:49 Dose: Not Given Documented by: Diphenhydramine HCl (Benadryl) 25 mg IVPUSH Q6H PRN PRN Reason: pruritis Ephedrine Sulfate (Ephedrine Sulfate) 5 mg IVPUSH ASDIRECTED PRN PRN Reason: Hypotension Fentanyl (Sublimaze) 100 mcg EPIDUR Q3H PRN PRN Reason: Pain Last Admin: 01/02/20 03:44 Dose: 100 mcg Documented by: Fentanyl/Bupivacaine HCl (Fentanyl/Bupivacaine/Ns 2 Mcg-0.125% 100 Ml) 100 ml EPIDUR ASDIRECTED PRN PRN Reason: Pain Last Admin: 01/02/20 12:43 Dose: 100 ml Documented by: Oxytocin/Lactated Ringer's (Pitocin In Lr 10 Units/1,000 Ml) 10 unit in 1,000 mls @ 12 mls/hr IV TITRATE TOMMIE; Protocol Last Titration: 01/02/20 14:05 Dose: 15 munits/min, 90 mls/hr Documented by: Oxytocin/Lactated Ringer's (Pitocin In Lr 10 Units/1,000 Ml) 10 unit in 1,000 mls @ 500 mls/hr IV .CONTINUOUS TOMMIE Lactated Ringer's (Ringers, Lactated) 1,000 mls @ 40 mls/hr IV ASDIRECTED TOMMIE Last Admin: 01/02/20 11:18 Dose: 40 mls/hr Documented by: Cefazolin Sodium/Dextrose 2 gm (/ Premix) 50 mls @ 100 mls/hr IV ONETIME ONE Stop: 01/02/20 16:14 Last Admin: 01/02/20 21:48 Dose: Not Given Documented by: Azithromycin 500 mg/ Sodium (Chloride) 250 mls @ 250 mls/hr IV ONETIME ONE Stop: 01/02/20 16:59 Last Admin: 01/03/20 11:48 Dose: Not Given Documented by: Dextrose/Lactated Ringer's (Dextrose 5%-Lactated Ringers) 1,000 mls @ 125 mls/hr IV ASDIRECTED TOMMIE Stop: 01/03/20 02:05 Last Admin: 01/02/20 20:36 Dose: 125 mls/hr Documented by: Sodium Chloride (Normal Saline) 1,000 mls @ 1,000 mls/hr IV ONETIME ONE Stop: 01/03/20 03:49 Last Admin: 01/03/20 02:58 Dose: 1,000 mls/hr Documented by: Cefazolin Sodium/Dextrose 1 gm (/ Premix) 50 mls @ 100 mls/hr IV ONETIME ONE Stop: 01/03/20 04:11 Last Admin: 01/03/20 03:50 Dose: 100 mls/hr Documented by: Ketorolac Tromethamine (Toradol) 30 mg IVPUSH Q6H [facility] Stop: 01/03/20 10:31 Last Admin: 01/03/20 10:26 Dose: 30 mg Documented by: Methylergonovine Maleate (Methergine) 0.2 mg IM Q4H [facility] Stop: 01/03/20 06:52 Last Admin: 01/03/20 06:45 Dose: 0.2 mg Documented by: Metoclopramide HCl (Reglan) 10 mg IVPUSH ONETIME ONE Stop: 01/02/20 15:46 Last Admin: 01/02/20 16:00 Dose: 10 mg Documented by: Metoclopramide HCl (Reglan) Confirm Administered Dose 10 mg .ROUTE .STK-MED ONE Stop: 01/02/20 16:03 Last Admin: 01/02/20 21:49 Dose: Not Given Documented by: Misoprostol (Cytotec) 600 mcg PO NOW ONE Stop: 01/03/20 03:41 Last Admin: 01/03/20 03:49 Dose: 600 mcg Documented by: Misoprostol (Cytotec) Confirm Administered Dose 600 mcg .ROUTE .STK-MED ONE Stop: 01/03/20 03:43 Last Admin: 01/03/20 03:56 Dose: Not Given Documented by: Morphine Sulfate (Morphine) 4 mg IVPUSH ONETIME ONE Stop: 01/03/20 03:11 Last Admin: 01/03/20 03:15 Dose: 4 mg Documented by: Morphine Sulfate (Morphine) 2 mg IVPUSH ONETIME ONE Stop: 01/03/20 03:27 Last Admin: 01/03/20 03:30 Dose: 2 mg Documented by: Morphine Sulfate (Morphine) Confirm Administered Dose 2 mg .ROUTE .STK-MED ONE Stop: 01/03/20 03:28 Last Admin: 01/03/20 03:48 Dose: Not Given Documented by: Nalbuphine HCl (Nubain) 10 mg IVPUSH Q2H PRN PRN Reason: Pain Ondansetron HCl (Zofran) 4 mg IVPUSH Q4H PRN PRN Reason: Nausea/Vomiting Oxytocin (Pitocin) Confirm Administered Dose 20 unit .ROUTE [email or web address] ONE Stop: 01/02/20 16:17 Sodium Chloride (Saline Flush) 10 ml FLUSH ASDIRECTED PRN PRN Reason: Keep Vein Open
== END 2020-01-04 11:40 | disposition home or self-care (01) | DRG 540 ==
LOC: JD.OBCHECK 18:55 → JD.OB 19:00 → OBSVTOIN 01-02 16:24 → JD.OB 01-02 16:25
PROVIDERS: ADMIT Obstetrics & Gynecology; ATTEND Obstetrics & Gynecology
PROC: 10H07YZ Insertion of Other Device into Products of Conception, Via Natural or Artificial Opening (ICD-10-PCS; principal; 2020-01-02)
PROC: 3E033VJ Introduction of Other Hormone into Peripheral Vein, Percutaneous Approach (ICD-10-PCS; 2020-01-02)
PROC: 3E0P7VZ Introduction of Hormone into Female Reproductive, Via Natural or Artificial Opening (ICD-10-PCS; 2020-01-02)
PROC: 10D00Z1 Extraction of Products of Conception, Low, Open Approach (ICD-10-PCS; 2020-01-02)
DX: O34.211 Maternal care for low transverse scar from previous cesarean delivery (principal); O48.0 Post-term pregnancy; Z3A.40 40 weeks gestation of pregnancy; Z37.0 Single live birth; O24.420 Gestational diabetes mellitus in childbirth, diet controlled; O66.41 Failed attempted vaginal birth after previous cesarean delivery; O72.2 Delayed and secondary postpartum hemorrhage; D64.9 Anemia, unspecified; Z20.828 Contact with and (suspected) exposure to other viral communicable diseases
CPT/HCPCS: 01967; 01968; 36415; 51702; 59025; 82962; 85025; 85027; 86592; 86850; 86900; 86901; A9270-GY; J0690; J1885; J2210; J2270; J2590; J2765; J3010; J3490; J7030; J7120; J7121; U0002

== ENCOUNTER 2021-09-14 07:04 | Emergency (ER) | payer BC ==
[2021-09-14] MEDS ORDERED: Famotidine 20 MG/2 ML SDV IVPUSH ONE (07:35)
[2021-09-14] MEDS ORDERED: Ondansetron 4 MG/2 ML SDV IVPUSH ONE (07:35)
[2021-09-14] MEDS ORDERED: Sodium Chloride 0.9% 10 ML Syringe FLUSH PRN (07:35)
[2021-09-14] MEDS ORDERED: Sodium Chloride 0.9% 1,000 ML IV SCH (07:45)
== END 2021-09-14 10:30 | disposition home or self-care (01) ==
LOC: JD.ED 07:04
DX: K21.9 Gastro-esophageal reflux disease without esophagitis (principal); Z79.899 Other long term (current) drug therapy
CPT/HCPCS: 36415; 80053; 84703; 85025; 86140; 93005; 96361; 96374; 96375; 99285; J2405; J3490; J7030